=== PATIENT | male | born 1980 | race American Indian/Alaskan Native ===

== ENCOUNTER 2017-06-29 14:23 | Emergency (ER) | payer MEDICAID, OTHER ==
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
[2017-06-29] MEDS ORDERED: Diphtheria,Pertussis(Acell),Tetanus Vaccine 0.5 ML SDV IM ONE (14:31)
[2017-06-29 14:53] VITALS: BP 134/88
== END 2017-06-29 15:12 | disposition home or self-care (01) ==
LOC: DL.ED 14:23
DX: S61.411A Laceration without foreign body of right hand, initial encounter (principal); S39.012A Strain of muscle, fascia and tendon of lower back, initial encounter; Z23 Encounter for immunization; F17.210 Nicotine dependence, cigarettes, uncomplicated; Z98.890 Other specified postprocedural states; Z88.1 Allergy status to other antibiotic agents; W45.8XXA Other foreign body or object entering through skin, initial encounter; Y93.39 Activity, other involving climbing, rappelling and jumping off
CPT/HCPCS: 72100; 90715; 99283

== ENCOUNTER 2019-03-17 09:23 | Emergency (ER) | payer OTHER ==
[2019-03-17] MEDS ORDERED: Bacitracin Oint 1 GM U/D Packet TOP ONE (09:31)
[2019-03-17] MEDS ORDERED: Lidocaine 1% 30 ML SDV INJECT ONE (09:31)
[2019-03-17 10:00] LABS: ANION GAP 14.2; CHLORIDE,CL 98 mmol/L (101-111); SODIUM,NA 134 mmol/L (135-145)
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
== END 2019-03-17 10:35 | disposition home or self-care (01) ==
LOC: DL.ED 09:23
DX: S31.811A Laceration without foreign body of right buttock, initial encounter (principal); Z88.1 Allergy status to other antibiotic agents; W26.0XXA Contact with knife, initial encounter
CPT/HCPCS: 12002; 36415; 80053; 85025; 85610; 85730; 86850; 86900; 86901; 86920; 86922; 99285; G0480; J2001; 13101; 99283

== ENCOUNTER 2022-03-22 20:49 | Emergency (ER) | payer MEDICAID, OTHER ==
[2022-03-22 21:03] VITALS: BP 119/74; PULSE 93
[2022-03-22 22:01] LABS: ANION GAP 10.4 mEq/L (7-13); CHLORIDE,CL 112 mmol/L (98-107); SODIUM,NA 148 mmol/L (136-145)
[2022-03-22 22:03] LABS: ESTIMATED GFR > 60
[2022-03-22] MEDS ORDERED: Naloxone 2 MG/2 ML Syringe IVPUSH ONE (22:27)
[2022-03-22] MEDS ORDERED: MVI, Adult with Vitamin K 10 ML, Folic Acid 1 MG, Thiamine 100 MG in Lactated Ringers 1... IV ONE ×4 (22:27)
[2022-03-22 23:24] LABS: AMPHETAMINES,URINE NEGATIVE (NEGATIVE); BARBITURATES,URINE NEGATIVE (NEGATIVE); BENZODIAZEPINE,URINE NEGATIVE (NEGATIVE); MDMA (ECSTASY), URINE NEGATIVE (NEGATIVE); METHADONE,URINE NEGATIVE (NEGATIVE); METHAMPHETAMINES,URINE POSITIVE (NEGATIVE); OPIATES,URINE NEGATIVE (NEGATIVE); OXYCODONE,URINE NEGATIVE (NEGATIVE); PHENCYCLIDINE,URINE NEGATIVE (NEGATIVE); TCA,URINE NEGATIVE (NEGATIVE)
== END 2022-03-23 02:32 | disposition home or self-care (01) ==
LOC: DL.ED 20:49
DX: F10.10 Alcohol abuse, uncomplicated (principal); R82.5 Elevated urine levels of drugs, medicaments and biological substances; F17.210 Nicotine dependence, cigarettes, uncomplicated; Z88.0 Allergy status to penicillin; Y90.8 Blood alcohol level of 240 mg/100 ml or more
CPT/HCPCS: 36415; 80053; 80305; 80307; 81003; 82150; 83690; 85025; 96365; 96375; 99284; J2310; J3411; J7120; 99282; J3490

== ENCOUNTER 2022-04-07 09:46 | Emergency (ER) | payer MEDICAID ==
[2022-04-07 10:05] VITALS: BP 130/82; PULSE 100
[2022-04-07 10:46] LABS: ANION GAP 14.4 mEq/L (7-13)
== END 2022-04-07 12:51 | disposition home or self-care (01) ==
LOC: DL.ED 09:46
DX: S43.102A Unspecified dislocation of left acromioclavicular joint, initial encounter (principal); S00.12XA Contusion of left eyelid and periocular area, initial encounter; F10.129 Alcohol abuse with intoxication, unspecified; Z88.1 Allergy status to other antibiotic agents; Y90.8 Blood alcohol level of 240 mg/100 ml or more; W17.89XA Other fall from one level to another, initial encounter
CPT/HCPCS: 36415; 70450; 72125; 73000-LT; 73030-LT; 80053; 80307; 85025; 99282; 99284-25

== ENCOUNTER 2023-02-02 09:00 | Emergency (ER) | payer MEDICAID ==
[2023-02-02] MEDS ORDERED: Sodium Chloride 0.9% 1,000 ML IV SCH (09:30)
[2023-02-02] MEDS ORDERED: Ondansetron 4 MG/2 ML SDV IVPUSH ONE (09:40)
[2023-02-02] MEDS ORDERED: fentaNYL 100 MCG/2 ML SDV IVPUSH ONE (09:40)
[2023-02-02] MEDS ORDERED: Sodium Chloride 0.9% 1,000 ML IV ONE (09:40)
[2023-02-02 09:57] LABS: PTT,PARTIAL THROMBOPLSTIN TIME 29.4 SEC (22.0-34.0)
[2023-02-02 09:59] LABS: ANION GAP 12.1 mEq/L (7-13); CHLORIDE,CL 105 mmol/L (98-107); ESTIMATED GFR 95 mL/min (>=60); SODIUM,NA 142 mmol/L (136-145)
[2023-02-02 10:53] LABS: AMPHETAMINES,URINE NEGATIVE (NEGATIVE); BARBITURATES,URINE NEGATIVE (NEGATIVE); BENZODIAZEPINE,URINE NEGATIVE (NEGATIVE); MDMA (ECSTASY), URINE NEGATIVE (NEGATIVE); METHADONE,URINE NEGATIVE (NEGATIVE); METHAMPHETAMINES,URINE NEGATIVE (NEGATIVE); OPIATES,URINE NEGATIVE (NEGATIVE); OXYCODONE,URINE NEGATIVE (NEGATIVE); PHENCYCLIDINE,URINE NEGATIVE (NEGATIVE); TCA,URINE NEGATIVE (NEGATIVE)
[2023-02-02] MEDS ORDERED: Acetaminophen 500 MG Tab PO ONE (11:03)
[2023-02-02] MEDS ORDERED: Lidocaine 2% with EPINEPHrine 1:200,000 20 ML SDV INJECT ONE (11:09)
[2023-02-02] MEDS ORDERED: Bacitracin Oint 1 GM U/D Packet TOP ONE (13:26)
[2023-02-02 13:54] VITALS: BP 108/82; PULSE 78
== END 2023-02-02 13:45 ==
LOC: DL.ED 09:00
DX: S51.812A Laceration without foreign body of left forearm, initial encounter (principal); S51.811A Laceration without foreign body of right forearm, initial encounter; Z88.0 Allergy status to penicillin; W26.8XXA Contact with other sharp object(s), not elsewhere classified, initial encounter
CPT/HCPCS: 12006; 36415; 73030; 80053; 80305; 80307; 81003; 82150; 83605; 83690; 83735; 85025; 85610; 85730; 86140; 86850; 86900; 86901; 96361; 96374; 96375; 99284; 99285; A9270; J2405; J3010; J7030; J3490

== ENCOUNTER 2024-12-27 14:41 | Emergency (ER) | payer MEDICAID ==
[2024-12-27] MEDS: Iopamidol 612 MG/ML 100 ML Bottle IVPUSH ONE (14:58)
[2024-12-27 15:48] LABS: BASOPHILS PERCENT AUTO 0.2 % (0.0-1.0); EOSINOPHILS PERCENT AUTO 5.9 % (1.0-3.0); HEMATOCRIT 43.5 % (40.0-54.0); HEMOGLOBIN 14.1 g/dL (14.0-18.0); LYMPHOCYTES PERCENT AUTO 20.1 % (20.5-50.1); MEAN CORPUSCULAR HEMOGLOBIN 28.2 pg (27.0-34.0); MEAN CORPUSCULAR HGB CONC 32.4 g/dL (33.0-35.0); MONOCYTES PERCENT AUTO 10.4 % (2-8); NEUTROPHILS PERCENT AUTO 63.4 % (42.2-75.2); PLATELET COUNT,PLT 264 10^3/uL (150-450); WHITE BLOOD CELL COUNT,WBC 10.8 10^3/uL (5.0-10.0)
[2024-12-27 16:10] LABS: A/G RATIO 0.79; ALANINE AMINOTRANSFERASE,ALT 63 U/L (16-63); ALBUMIN 3.3 g/dL (3.4-5.0); ALKALINE PHOSPHATASE 161 U/L (46-116); ANION GAP 13.7 mEq/L (7-13); ASPARTATE AMNIOTRANSFERASE,AST 48 U/L (15-37); BILIRUBIN TOTAL 0.4 mg/dL (0.2-1.0); BLOOD UREA NITROGEN,BUN 7 mg/dL (7-18); BUN/CREATININE RATIO 8.3 (No establ ref range); CALCIUM 8.3 mg/dL (8.5-10.1); CARBON DIOXIDE,CO2 27 mmol/L (21-32); CHLORIDE,CL 107 mmol/L (98-107); CREATININE 0.84 mg/dL (0.70-1.30); ESTIMATED GFR 112 mL/min (>=60); GLUCOSE RANDOM 93 mg/dL (70-99); INR 0.9 (0.9-1.2); POTASSIUM,K 3.7 mmol/L (3.5-5.1); PROTEIN TOTAL,TP 7.5 g/dL (6.4-8.2); PROTHROMBIN TIME 9.3 SEC (9.0-12.0); PTT,PARTIAL THROMBOPLSTIN TIME 29.4 SEC (22.0-34.0); SODIUM,NA 144 mmol/L (136-145)
[2024-12-27 16:13] LABS: LACTIC ACID 1.2 mmol/L (0.4-2.0)
[2024-12-27] MEDS: Sodium Chloride 0.9% 1,000 ML IV ONE (16:16)
[2024-12-27] MEDS: Ketorolac 30 MG/ML SDV IVPUSH ONE (17:43)
[2024-12-27 17:49] VITALS: BP 104/66; PULSE 102
[2024-12-27 18:02] LABS: METHAMPHETAMINES,URINE POSITIVE (NEGATIVE)
[2024-12-27 18:03] LABS: AMPHETAMINES,URINE POSITIVE (NEGATIVE); BARBITURATES,URINE NEGATIVE (NEGATIVE); BENZODIAZEPINE,URINE NEGATIVE (NEGATIVE); MDMA (ECSTASY), URINE NEGATIVE (NEGATIVE); METHADONE,URINE NEGATIVE (NEGATIVE); OPIATES,URINE NEGATIVE (NEGATIVE); OXYCODONE,URINE NEGATIVE (NEGATIVE); PHENCYCLIDINE,URINE NEGATIVE (NEGATIVE); TCA,URINE NEGATIVE (NEGATIVE)
[2024-12-27] MEDS: ceFAZolin 2 GM Vial IVPUSH ONE (18:31)
== END 2024-12-27 18:38 | disposition home or self-care (01) ==
LOC: DL.ED 14:41
DX: L03.116 Cellulitis of left lower limb (principal); Z88.0 Allergy status to penicillin
CPT/HCPCS: 36415; 73701; 80053; 80305; 83605; 83735; 85025; 85610; 85730; 87040; 96374; 96375; 99284; J0690; J1885; J7030; Q9967

== ENCOUNTER 2025-02-19 22:48 | Emergency (ER) | payer SELFPAY ==
[2025-02-19] MEDS: Sodium Chloride 0.9% 1,000 ML IV ONE (21:58)
[2025-02-19 22:12] LABS: BASOPHILS PERCENT AUTO 0.3 % (0.0-1.0); HEMATOCRIT 43.3 % (40.0-54.0); HEMOGLOBIN 14.4 g/dL (14.0-18.0); LYMPHOCYTES PERCENT AUTO 21.2 % (20.5-50.1); MEAN CORPUSCULAR HEMOGLOBIN 29.2 pg (27.0-34.0); MEAN CORPUSCULAR HGB CONC 33.3 g/dL (33.0-35.0); MEAN CORPUSCULAR VOLUME 87.8 fL (80-100); MONOCYTES PERCENT AUTO 6.9 % (2-8); NEUTROPHILS PERCENT AUTO 67.6 % (42.2-75.2); PLATELET COUNT,PLT 294 10^3/uL (150-450); RED BLOOD CELL COUNT 4.93 10^6/uL (4.6-6.2); WHITE BLOOD CELL COUNT,WBC 10.7 10^3/uL (5.0-10.0)
[2025-02-19 22:35] LABS: ALANINE AMINOTRANSFERASE,ALT 40 U/L (16-63); ALBUMIN 3.3 g/dL (3.4-5.0); ALKALINE PHOSPHATASE 133 U/L (46-116); ASPARTATE AMNIOTRANSFERASE,AST 42 U/L (15-37); BILIRUBIN TOTAL 0.3 mg/dL (0.2-1.0); BLOOD UREA NITROGEN,BUN 11 mg/dL (7-18); BUN/CREATININE RATIO 12.8 (No establ ref range); CALCIUM 7.8 mg/dL (8.5-10.1); CARBON DIOXIDE,CO2 26 mmol/L (21-32); CREATININE 0.86 mg/dL (0.70-1.30); ETHANOL BLOOD MEDICAL 263 mg/dL (0); GLUCOSE RANDOM 95 mg/dL (70-99); LIPASE 15 U/L (16-77); POTASSIUM,K 3.2 mmol/L (3.5-5.1); PROTEIN TOTAL,TP 7.2 g/dL (6.4-8.2)
[2025-02-19 22:38] LABS: ANION GAP 14.2 mEq/L (7-13); CHLORIDE,CL 111 mmol/L (98-107); SODIUM,NA 148 mmol/L (136-145)
[2025-02-19 22:39] LABS: A/G RATIO 0.85; ESTIMATED GFR 111 mL/min (>=60)
[2025-02-19 22:51] VITALS: BP 130/83; PULSE 81
[2025-02-19] MEDS: Iopamidol 612 MG/ML 100 ML Bottle IVPUSH ONE (22:58)
[2025-02-19] MEDS: Diphtheria,Pertussis(Acell),Tetanus Vaccine 0.5 ML Syringe IM ONE (23:05)
[2025-02-19 23:51] LABS: APPEARANCE,URINE CLEAR (CLEAR); BILIRUBIN,URINE NEGATIVE (NEGATIVE); COLOR,URINE YELLOW (YELLOW); GLUCOSE,URINE NEGATIVE (NEGATIVE); KETONES,URINE NEGATIVE (NEGATIVE); LEUKOCYTE ESTERASE,URINE NEGATIVE (NEGATIVE); NITRITE,URINE NEGATIVE (NEGATIVE); OCCULT BLOOD,URINE SMALL (NEGATIVE); PH,URINE 5.5 (5.0-9.0); PROTEIN,URINE NEGATIVE (NEGATIVE)
[2025-02-20 00:08] LABS: AMPHETAMINES,URINE POSITIVE (NEGATIVE); BARBITURATES,URINE NEGATIVE (NEGATIVE); BENZODIAZEPINE,URINE NEGATIVE (NEGATIVE); MDMA (ECSTASY), URINE NEGATIVE (NEGATIVE); METHADONE,URINE NEGATIVE (NEGATIVE); METHAMPHETAMINES,URINE POSITIVE (NEGATIVE); OPIATES,URINE NEGATIVE (NEGATIVE); OXYCODONE,URINE NEGATIVE (NEGATIVE); PHENCYCLIDINE,URINE NEGATIVE (NEGATIVE); TCA,URINE NEGATIVE (NEGATIVE)
[2025-02-20 00:16] LABS: BACTERIA,URINE FEW /HPF (0-FEW/HPF); EPITHELIAL CELLS,URINE RARE /HPF (NOT SEEN); MUCUS,URINE FEW /LPF (NOT SEEN); WBC,URINE 0-5 /HPF (0-5/HPF)
[2025-02-20] MEDS: Morphine 4 MG/ML Syringe IVPUSH ONE (00:20)
== END 2025-02-20 00:21 ==
LOC: DL.ED 22:48
DX: S22.42XA Multiple fractures of ribs, left side, initial encounter for closed fracture (principal); S02.2XXA Fracture of nasal bones, initial encounter for closed fracture; S02.85XA Fracture of orbit, unspecified, initial encounter for closed fracture; F10.10 Alcohol abuse, uncomplicated; S43.102A Unspecified dislocation of left acromioclavicular joint, initial encounter
CPT/HCPCS: 36415; 70450; 70486; 71260; 72125; 73560; 74177; 80053; 80305; 80307; 81001; 83690; 84484; 85025; 90471; 90715; 93005; 93010; 96361; 96374; 99285; J2270; J7030; Q9967